=== PATIENT | male | born 1960 | race Caucasian/White ===

== ENCOUNTER 2022-09-01 09:16 | Observation (INO) ==
--- NOTE | 2022-07-20 10:14 | PAT Medication Instructions ---
Medication Instructions Date of Service July 20, 2022 Home Medications acetaminophen 650 mg tablet,extended release 1,300 mg PO Q12H PRN Pain albuterol sulfate 90 mcg/actuation aerosol inhaler (ProAir HFA) 1 inh inhalation QID PRN sob aspirin 325 mg tablet 325 mg PO QPM cetirizine 10 mg tablet 10 mg PO QAM diclofenac sodium 75 mg tablet,delayed release 75 mg PO BID PRN Pain fenofibrate 54 mg tablet 54 mg PO QPM levothyroxine 25 mcg tablet (Synthroid) 25 mcg PO QAM lorazepam 0.5 mg tablet (Ativan) 0.5 mg PO BID PRN Anxiety losartan 100 mg tablet (Cozaar) 100 mg PO QAM rwkrkpseeoyp-asfdvhzp-buokzx tablet 1 tab PO QPM omega 0-lns-wtm-fish oil 1,200 mg (144 mg-216 mg) capsule (Fish Oil) 1 cap PO BID omeprazole 40 mg capsule,delayed release 40 mg PO QAM rosuvastatin 10 mg tablet (Crestor) 10 mg PO QAM sertraline 50 mg tablet (Zoloft) 50 mg PO QAM triamterene 37.5 mg-hydrochlorothiazide 25 mg tablet (Maxzide-25mg) 1 tab PO QAM ASK your surgeon for instructions diclofenac sodium 75 mg tablet,delayed release 75 mg PO BID PRN Pain ASK your prescriber and surgeon aspirin 325 mg tablet 325 mg PO QPM STOP taking 2 weeks before surgery (or as soon as possible if surgery is within 2 weeks) omega 3-fch-qxy-fish oil 1,200 mg (144 mg-216 mg) capsule (Fish Oil) 1 cap PO BID divsdhulkvaa-gkzbvgvd-xktbvw tablet 1 tab PO QPM STOP taking 48 hours before surgery fenofibrate 54 mg tablet 54 mg PO QPM DO NOT take the morning of surgery cetirizine 10 mg tablet 10 mg PO QAM losartan 100 mg tablet (Cozaar) 100 mg PO QAM triamterene 37.5 mg-hydrochlorothiazide 25 mg tablet (Maxzide-25mg) 1 tab PO QAM Take morning of surgery With a small sip of water, OTHERWISE NOTHING TO EAT OR DRINK AFTER MIDNIGHT: acetaminophen 650 mg tablet,extended release 1,300 mg PO Q12H PRN Pain (if needed) albuterol sulfate 90 mcg/actuation aerosol inhaler (ProAir HFA) 1 inh inhalation QID PRN sob (use if needed; please bring rescue inhaler with you to hospital day of surgery if possible) levothyroxine 25 mcg tablet (Synthroid) 25 mcg PO QAM lorazepam 0.5 mg tablet (Ativan) 0.5 mg PO BID PRN Anxiety (if needed) omeprazole 40 mg capsule,delayed release 40 mg PO QAM sertraline 50 mg tablet (Zoloft) 50 mg PO QAM Take evening before surgery acetaminophen 650 mg tablet,extended release 1,300 mg PO Q12H PRN Pain (if needed) albuterol sulfate 90 mcg/actuation aerosol inhaler (ProAir HFA) 1 inh inhalation QID PRN sob (if needed) lorazepam 0.5 mg tablet (Ativan) 0.5 mg PO BID PRN Anxiety (if needed) Other Notes If you have any questions please call us at [phone] or [phone] or [phone] or [phone]
--- NOTE | 2022-07-23 11:15 | Anesthesiology Consultation ---
Date of Service July 23, 2022 Assessment & Plan (1) Encounter for pre-operative examination: Chart Review Chart Review: Pending: Refer to Additional Notes / Consult section (pending PCP clearance 07/28/22 ) and Patient seen in Pre Admission Testing -Awaiting PCP clearance scheduled 07/28/22 (will write note to PCP re: patient's chest pressure); please also send preop testing for PCP review Per [facility] appt on 07/23/22, patient denies any recent travel or large group activities. Pt is vaccinated for Covid. Pt had head and chest congestion 06/27/22- symptoms have since subsided. Preop Covid test ordered at [facility] appt 07/23/22= positive. DOS will be 19 days from Covid positive test- symptoms have resolved. Pt can proceed as scheduled. Educated on importance of using Covid precautions one week prior to surgery Teaching & Discussion Pre-Anesthesia Teaching/Discussion Notes: Instructed NPO after midnight before surgery,except medications with 15 cc of water. Medication instructions provided according to the [facility] guidelines. History Surgery Operation Date: 08/11/22 10:05 Proposed Procedures p L4-L5 Decompression with Possible Coflex - Wilfred Painting DO Height/Weight Height: 5 ft 6.5 in Weight: 116 kg Allergies Allergy/AdvReac Type Severity Reaction Status Date / Time No Known Allergies Allergy Unverified 07/20/22 07:29 Medications Home Medications Medication Instructions Recorded Confirmed Last Taken acetaminophen 650 mg 1,300 mg PO Q12H PRN Pain 07/20/22 07/20/22 Unknown tablet,extended release albuterol sulfate 90 mcg/actuation 1 inh inhalation QID PRN sob 07/20/22 07/20/22 Unknown aerosol inhaler (ProAir HFA) aspirin 325 mg tablet 325 mg PO QPM 07/20/22 07/20/22 Unknown cetirizine 10 mg tablet 10 mg PO QAM 07/20/22 07/20/22 Unknown diclofenac sodium 75 mg 75 mg PO BID PRN Pain 07/20/22 07/20/22 Unknown tablet,delayed release fenofibrate 54 mg tablet 54 mg PO QPM 07/20/22 07/20/22 Unknown levothyroxine 25 mcg tablet 25 mcg PO QAM 07/20/22 07/20/22 Unknown (Synthroid) lorazepam 0.5 mg tablet (Ativan) 0.5 mg PO BID PRN Anxiety 07/20/22 07/20/22 Unknown losartan 100 mg tablet (Cozaar) 100 mg PO QAM 07/20/22 07/20/22 Unknown lielrmnkxrko-wwertxbf-enxriz tablet 1 tab PO QPM 07/20/22 07/20/22 Unknown omega 8-qku-ghy-fish oil 1,200 mg 1 cap PO BID 07/20/22 07/20/22 Unknown (144 mg-216 mg) capsule (Fish Oil) omeprazole 40 mg capsule,delayed 40 mg PO QAM 07/20/22 07/20/22 Unknown release rosuvastatin 10 mg tablet (Crestor) 10 mg PO QAM 07/20/22 07/20/22 Unknown sertraline 50 mg tablet (Zoloft) 50 mg PO QAM 07/20/22 07/20/22 Unknown triamterene 37.5 1 tab PO QAM 07/20/22 07/20/22 Unknown mg-hydrochlorothiazide 25 mg tablet (Maxzide-25mg) Past Medical History Medical History Anxiety mild - rarely. Chronic back pain Degenerative disc disease Depression GERD (gastroesophageal reflux disease) Well controlled and stable Hyperlipidemia Hypertension Hypothyroidism Sleep apnea cpap nightly Exercise / Class Metabolic Activity II 4-5 Yardwork/Stairs/Walk up hill (one flight of stairs - no chest pain or SOB ) Past Family History Family History Other No family history of adverse response to anesthesia Past Surgical History Surgical History H/O decompression of ulnar nerve H/O left inguinal hernia repair History of carpal tunnel release bilateral History of cholecystectomy History of colonoscopy History of surgical removal of skin lesion around the eye area S/P laminectomy left S1 - L5 ([address] Painting) S/P right knee arthroscopy S/P trigger finger release Past Anesthesia History No Hx of Anesthesia Complications and No Family Hx of Anesthesia Complications History of PONV No Hx of PONV and No Hx of Motion Sickness Social History Smoking Status: Former smoker tobacco type: cigarettes Do You Dip or Chew Tobacco: No Smoking End Date: 2017 Hx Alcohol Use: No Hx Substance Use: No substance use type: does not use Review of Systems Pt admits to occ chest pressure- occurs occasionally. Once month. Can occur with rest. No radiation. No associated SOB or nausea. Located to bilateral upper chest R>L Mild chest and sinus congestion over [place] - symptoms improving as of 07/23/22 Patient denies chest pain, shortness of breath, dyspnea on exertion, cough, wheezing, palpitations. No hx of seizures, stroke, LA. No hx of blood clots or blood transfusions Physical Exam Vital Signs VITALS BP 154/82 P 76 TEMP 98.9 SP02 98% RESP 16 Constitutional no acute distress ENMT Mouth: + small oral opening; no TMJ clicking Thyromental Distance: < 3.5 Finger Breadths (3.0) Mallampati Class: III Missing molars Neck neck extension not limited Respiratory normal respiratory effort; no respiratory distress Auscultation: lungs clear to auscultation bilaterally; no wheezes Cardiovascular Rate/Rhythm: regular rate and regular rhythm Heart Sounds: no murmur Vessels: no carotid bruit Musculoskeletal Spine: no pain with cervical ROM Extremities: extremities normal to inspection Psychiatric Orientation: alert Lab Results Anesthesia Preop Results Results Anesthesia Widget: WBC 6.28 K/ul (4.8-10.8) 07/23/22 Hgb 12.2 g/dl (14.0-18.0) L 07/23/22 Hct 36.3 % (40.1-51.0) L 07/23/22 Plt 249 K/uL (130-400) 07/23/22 Na 143 mmol/L (136-145) 07/23/22 K 4.6 mmol/L (3.5-5.1) 07/23/22 Cl 107 mmol/L (98-107) 07/23/22 CO2 29 mmol/L (21-32) 07/23/22 BUN 33 mg/dl (6-23) H 07/23/22 Creat 1.50 mg/dl (0.6-1.4) H 07/23/22 Glucose Level 115 mg/dl (70-99(Fasting)) H 07/23/22 PT 11.1 Seconds (9.0-12.0) 07/23/22 PTT 26.3 Seconds (21.0-31.0) 07/23/22 INR 1.0 (0.9-1.1) 07/23/22 Urine Color Yellow 07/23/22 Urine Appearance Clear (Clear) 07/23/22 Urine pH 7.5 (4.5-7.5) 07/23/22 Urine Specific [place] 1.019 (1.000-1.030) 07/23/22 Urine Protein Negative (Negative) 07/23/22 Urine Glucose (UA) Negative (Negative) 07/23/22 Urine Ketones Negative (Negative) 07/23/22 Urine Blood Negative (Negative) 07/23/22 Urine Nitrite Negative (Negative) 07/23/22 Urine Bilirubin Negative (Negative) 07/23/22 Urine Urobilinogen Negative (Negative) 07/23/22 Urine Leukocyte Esterase Negative (Negative) 07/23/22 Blood Type A Positive 07/23/22 Antibody Screen NEGATIVE 07/23/22 Testing Laboratory Results Elevated creatinine fluctuates (creat 1.2-1.6 since December 2021)- will send labs to PCP for review at [facility] appt Electrocardiogram Date: 07/23/22 Findings: + NSR @ (75bpm ) Normal EKG per cardio. Chest X-Ray Date: 07/23/22 Findings: + NAD COVID-19 Risk Screen Screening Information COVID-19 Screen Date: 07/23/22 Exposure 21 Days Family/Household +COVID Last 21 Days: No Exposure 10 Days Any COVID Exposure Last 10 Days: No Symptoms Last 10 Days Experienced COVID Sx Last 10 Days: Yes Sx Experienced Last 10 Days: Congestion/Runny Nose and Cough Were You Tested for COVID: No Covid Sx 10 Day Pathway: Pt with cold symptoms 06/27/22- [facility] + COVID 0-90 Days COVID + in Last 0-90 Days: No COVID Testing Site COVID-19 Preop/Pre-Procedure Testing Site: [facility] (Will preop test [facility] 07[facility]22= positive (pt and surgeon's office made aware)) Risk Plan COVID Risk Plan Comment: Covid symptoms 06/27/22- pt scheduled for inpatient procedure Patient Education COVID Preop Screening Education Complete: Yes
[~2022-09-01 09:16] MED LIST: ACETAMINOPHEN 500 MG TAB PO SCH; CeleBREX 200 MG CAP PO SCH; GABAPENTIN 600 MG DOSE PO SCH; LR 15ML/HR IV SCH; ceFAZolin 2000MG 2,000 MG/15 ML SYR IV SCH
[2022-09-01] MEDS ORDERED: LIDOCAINE 2% MPF LOCAL 5 ML VIAL INFIL ONE (11:38)
[2022-09-01] MEDS ORDERED: MIDAZOLAM HCL 1 MG/ML 2ML VIAL ONE (11:38)
[2022-09-01] MEDS ORDERED: ONDANSETRON INJ 2 MG/ML 2 ML VIAL ONE (11:38)
[2022-09-01] MEDS ORDERED: ROCURONIUM BROMIDE 10 MG/ML 5 ML VIAL IV ONE (11:38)
[2022-09-01] MEDS ORDERED: DEXAMETHASONE SOD INJ 4 MG/ML VIAL ONE ×2 (11:38→14:18)
[2022-09-01] MEDS ORDERED: PROPOFOL IV EMULSION 10 MG/ML 20 ML VIAL IV ONE (11:38)
[2022-09-01] MEDS ORDERED: fentaNYL citrate 100 MCG/2 ML VIAL ONE (11:38)
[2022-09-01] MEDS ORDERED: ONDANSETRON INJ 2 MG/ML 2 ML VIAL IV PRN ×2 (12:30→16:10)
[2022-09-01] MEDS ORDERED: ePHEDrine sulfate 50 MG/ML AMP IV PRN (12:30)
[2022-09-01] MEDS ORDERED: PROMETHAZINE HCL 6.25 MG in SODIUM CHLORIDE 0.9% 50 ML IV PRN (12:30)
[2022-09-01] MEDS ORDERED: fentaNYL citrate 100 MCG/2 ML VIAL IV PRN (12:30)
[2022-09-01] MEDS ORDERED: HYDROmorphone INJ 2 MG/ML SYR/VIAL IV PRN (12:30)
[2022-09-01] MEDS ORDERED: ATROPINE SULFATE 0.1 MG/ML 10ML SYR IV PRN (12:30)
--- NOTE | 2022-09-01 12:46 | History & Physical Report ---
Date of Service September 01, 2022 Assessment & Plan (1) Lumbar disc herniation with radiculopathy: Plan: L4-L5 decompression with possible Coflex History of Present Illness Chief Complaint: Back and leg pain Primary Care Provider: Brice Rodriguez This is a 62 old male who presents with chronic persistent back and leg pain after failing course of nonoperative care is here for surgical invention. Allergies Allergy/AdvReac Type Severity Reaction Status Date / Time No Known Allergies Allergy Verified 09/01/22 10:52 Home Medications Medication Instructions Recorded Confirmed Type acetaminophen 650 mg 1,300 mg PO Q12H PRN Pain 07/20/22 09/01/22 History tablet,extended release albuterol sulfate 90 mcg/actuation 1 inh inhalation QID PRN sob 07/20/22 09/01/22 History aerosol inhaler (ProAir HFA) aspirin 325 mg tablet 325 mg PO QPM 07/20/22 09/01/22 History cetirizine 10 mg tablet 10 mg PO QAM 07/20/22 09/01/22 History diclofenac sodium 75 mg 75 mg PO BID PRN Pain 07/20/22 09/01/22 History tablet,delayed release fenofibrate 54 mg tablet 54 mg PO QPM 07/20/22 09/01/22 History levothyroxine 25 mcg tablet 25 mcg PO QAM 07/20/22 09/01/22 History (Synthroid) lorazepam 0.5 mg tablet (Ativan) 0.5 mg PO BID PRN Anxiety 07/20/22 09/01/22 History losartan 100 mg tablet (Cozaar) 100 mg PO QAM 07/20/22 09/01/22 History appvesgyqqfx-mtwkfzgc-hxjoah tablet 1 tab PO QPM 07/20/22 09/01/22 History omega 8-jks-nmt-fish oil 1,200 mg 1 cap PO BID 07/20/22 09/01/22 History (144 mg-216 mg) capsule (Fish Oil) omeprazole 40 mg capsule,delayed 40 mg PO QAM 07/20/22 09/01/22 History release rosuvastatin 10 mg tablet (Crestor) 10 mg PO QAM 07/20/22 09/01/22 History sertraline 50 mg tablet (Zoloft) 50 mg PO QAM 07/20/22 09/01/22 History triamterene 37.5 1 tab PO QAM 07/20/22 09/01/22 History mg-hydrochlorothiazide 25 mg tablet (Maxzide-25mg) Past Med/Surg History Medical History Anxiety mild - rarely. Chronic back pain Degenerative disc disease Depression GERD (gastroesophageal reflux disease) Well controlled and stable Hyperlipidemia Hypertension Hypothyroidism Sleep apnea cpap nightly Surgical History H/O decompression of ulnar nerve H/O left inguinal hernia repair History of carpal tunnel release bilateral History of cholecystectomy History of colonoscopy History of surgical removal of skin lesion around the eye area S/P laminectomy left S1 - L5 ([address] Painting) S/P right knee arthroscopy S/P trigger finger release Family History Other No family history of adverse response to anesthesia Social History Smoking Status: Former smoker Smoking End Date: 2017; Second Hand Exposure: No; Do You Dip or Chew Tobacco: No; Tobacco Cessation Education Requested by Patient: No Hx Alcohol Use: No Hx Substance Use: No Preferred Language: Russian Communication Ability: Effective [employer] Specialist Required: No Beliefs That Will Affect Care: None Current Living Situation: Spouse Other Information That Helps Us Care for You: No Feels Safe at Home: Yes Safety Concerns: Feels Safe At This Time Assistive Devices: CPAP Physical Exam Physical Exam: Patient is alert and oriented Heart regular rhythm Lungs clear Results & Data Results & Data ([facility]) Vital Signs (Past 12 Hours) Vital Signs Temp Pulse Resp BP Pulse Ox O2 Del Method 09/01/22 10:56 Room Air 09/01/22 10:56 36.5 C 63 16 136/91 97 Room Air
--- NOTE | 2022-09-01 12:46 | History & Physical Bridge Note ---
Date of Service September 01, 2022 History & Physical Bridge Note I have examined the patient, reviewed the History & Physical and in the interval since the performance of the History & Physical I have noted the following changes of clinical significance: no changes noted
[2022-09-01] MEDS ORDERED: ceFAZolin 330 MG/ML 1 GM VIAL ONE (12:58)
[2022-09-01] MEDS ORDERED: BUPIVACAINE/EPINEPHRINE 0.25% 1:200,000 30 ML VIAL ONE (12:58)
[2022-09-01] MEDS ORDERED: FLOSEAL HEMOSTATIC MATRIX 10ML TOP ONE (14:02)
[2022-09-01] MEDS ORDERED: GLYCOPYRROLATE 0.2 MG/ML VIAL ONE (14:18)
[2022-09-01] MEDS ORDERED: SUGAMMADEX SODIUM 200 MG/2 ML VIAL IV ONE (14:29)
--- NOTE | 2022-09-01 14:37 | Operative Report ---
Post Operative Report Pre & Post Diagnosis Operation Date: 09/01/22 12:25 Pre-Op Diagnosis: Intervertebral Disc Disorders with Radiculopathy Post-Op Diagnosis: Intervertebral Disc Disorders with Radiculopathy I identified the patient and participated in the time-out.: Yes Procedure Operation Date: 09/01/22 12:25 Actual Procedures #1 lumbar decompression with medial facetectomies and partial discectomy L4-L5. #2 placement of 16 mm Coflex between L4-L5. Surgeon Wilfred Painting, DO Plugger Ina Cheney Estimated Blood Loss 50 Findings See Below The patient is 5 foot 6 weighing over 113 kg with a BMI in excess of 39. The patient's body habitus did contribute to significant technical difficulty required deeper retractors longer instruments in order to perform his procedure. This had at least 50% increased operative time. Specimens None Indications This is a 62-year-old male who presents above-mentioned diagnosis after failed course of nonoperative care is here for the above-mentioned procedure. Description of Procedure Patient was met with identified informed consent obtained. Patient was then taken to the operative suite underwent a patient placed in a prone position the Augie table top of the Lio frame. All bony promises well-padded eyes inspected to ensure no external pressure placed upon the. This point the lumbar spine was prepped and draped no sterile fashion. Sharp dissection with the assistance of Bovie cautery was formed down to and exposing the interlaminar space at L4-L5. Self-retaining retractors placed. Midline decompression was then performed including bilateral medial facetectomies to address all stenosis as well as extensive laminotomy on the right in order to expose the traversing L5 nerve root. This was exposed medially and large fragments of disc material consistent with disc herniation identified and removed creating significant decompression of the traversing root. 16mm Coflex was inserted and crimped into place. a 10 round GIL drain inserted. It was then closed with 1 Vicryl in the fascia 2-0 Vicryl subcutaneously and 4 Monocryl for final closure. Steri-Strip sterile dressings placed. Patient waken taken to PACU in stable condition. Please note Ina Cheney was present at the entire procedure and all the patient positioning complex portion of the surgery and final skin closure. I attest to the content of the Intraoperative Record and any orders documented therein. Any exceptions are noted below.
--- NOTE | 2022-09-01 15:03 | Fluoroscopy Report ---
FL lumbar spine 2-3V CLINICAL HISTORY: L4-5 POSS COFLEX COMPARISON STUDY: None FLUOROSCOPY TIME: 6 seconds FLUOROSCOPY IMAGES: 2 EXPOSURE DOSE: 5.66 mGy FINDINGS: A metallic spacer device is noted between the L4-L5 spinous processes posteriorly. Multilev el spondylitic spurring. Moderate L5-S1 intervertebral disc space narrowing. No acute fracture or une xpected opaque foreign body identified. IMPRESSION: Fluoroscopic assistance as above. ACT 112: Negative or not required by law. Electronically signed by: Paul Lim M.D. 09/01/2022 3:01 PM
--- NOTE | 2022-09-01 15:36 | Anesthesiology Progress Note ---
Date of Service September 01, 2022 Anesthesia Post Procedure Vital Signs Vital Signs: Temp Pulse Pulse Resp BP BP Pulse Ox 09/01/22 15:20 57 L 12 121/73 95 09/01/22 15:30 36.5 C 58 L 12 129/75 98 09/01/22 15:10 59 L 14 132/77 100 09/01/22 15:00 63 16 130/76 100 09/01/22 14:50 36.0 C L 78 18 127/87 99 09/01/22 10:56 09/01/22 10:56 36.5 C 63 16 136/91 97 O2 Del Method O2 Flow Rate 09/01/22 15:20 Nasal Cannula 2 09/01/22 15:30 Nasal Cannula 2 09/01/22 15:10 Nasal Cannula 2 09/01/22 15:00 Oxymask 4 09/01/22 14:50 Oxymask 6 09/01/22 10:56 Room Air 09/01/22 10:56 Room Air Pain Intensity Lower Back: Pain Intensity: 8 Transfer of Care Handoff Completed per policy Notes Mental Status: alert / awake / arousable and participated in evaluation Patient Amnestic to Procedure: Yes Nausea / Vomiting: adequately controlled Pain: adequately controlled Airway Patency, RR, SpO2: stable & adequate BP & HR: stable & adequate Hydration State: stable & adequate Anesthetic Complications: no major complications apparent and Pt Satisfied with anesthetic care
[2022-09-01] MEDS ORDERED: oxyCODONE HCL IR 5 MG TAB (IMMEDIATE RELEASE) PO PRN (16:10)
[2022-09-01] MEDS ORDERED: DO NOT ADMINISTER FLU VACCINE PRN (16:10)
[2022-09-01] MEDS ORDERED: DO NOT ADMINISTER PNEUMOCOCCAL VACCINE PRN (16:10)
[2022-09-01] MEDS ORDERED: hydrOXYzine HCl 25 MG TAB PO PRN (16:10)
[2022-09-01] MEDS ORDERED: FAMOTIDINE 20 MG TAB PO PRN (16:10)
[2022-09-01] MEDS ORDERED: ACETAMINOPHEN 500 MG TAB PO PRN (16:10)
[2022-09-01] MEDS ORDERED: LORazepam 0.5 MG TAB PO PRN (16:10)
[2022-09-01] MEDS ORDERED: diphenhydrAMINE Capsule 25 MG CAP PO PRN (16:10)
[2022-09-01] MEDS ORDERED: ONDANSETRON 4 MG OD TAB PO PRN (16:10)
[2022-09-01] MEDS ORDERED: bisacodyL 10 MG SUPP PR PRN (16:10)
[2022-09-01] MEDS ORDERED: HYDROmorphone INJ 0.5 MG/0.5 ML SYR IV PRN (16:10)
[2022-09-01] MEDS ORDERED: PROMETHAZINE HCL 12.5 MG in SODIUM CHLORIDE 0.9% 50 ML IV PRN (16:10)
[2022-09-01] MEDS ORDERED: ALUMINUM/MAGNESIUM SUSP 30 ML UDC PO PRN (16:10)
[2022-09-01] MEDS ORDERED: LORazepam 2 MG/1 ML VIAL IV PRN (16:10)
[2022-09-01] MEDS ORDERED: ACETAMINOPHEN 1,000 MG/100 ML VIAL IV PRN (16:10)
[2022-09-01] MEDS ORDERED: NALOXONE HCL 0.4 MG/1 ML VIAL/CARP IV PRN (16:10)
[2022-09-01] MEDS ORDERED: METOCLOPRAMIDE HCL INJ 5 MG/ML 2 ML VIAL IV PRN (16:10)
[2022-09-01] MEDS ORDERED: traMADol HCL 50 MG TABLET PO PRN (16:10)
[2022-09-01] MEDS ORDERED: MAGNESIUM HYDROXIDE SUSP 30 ML UDC PO PRN (16:10)
[2022-09-01] MEDS ORDERED: SOD PHOSPHATE/SOD BIPHOSPHATE ENEMA 132 ML BTL PR PRN (16:10)
[2022-09-01] MEDS: LACTATED RINGER'S 1,000 ML IV SCH ×2 (16:32→22:14)
[2022-09-01] MEDS: ceFAZolin 2000MG 2,000 MG/15 ML SYR IV SCH (20:02)
[2022-09-01] MEDS ORDERED: ASPIRIN 325 MG ECTAB PO SCH (21:00)
[2022-09-01] MEDS ORDERED: CEROVITE ADV FORMULA TAB PO SCH (21:00)
[2022-09-01] MEDS ORDERED: DOCUSATE SODIUM/SENNA 50/8.6MG TAB PO SCH (21:00)
[2022-09-02] MEDS: LACTATED RINGER'S 1,000 ML IV SCH (00:28)
[2022-09-02] MEDS: ceFAZolin 2000MG 2,000 MG/15 ML SYR IV SCH (05:28)
[2022-09-02] MEDS ORDERED: POLYETHYLENE (MIRALAX) 17 GM PACK PO SCH (06:00)
[2022-09-02] MEDS ORDERED: LEVOTHYROXINE SODIUM 25 MCG TABLET PO SCH (06:30)
--- NOTE | 2022-09-02 08:31 | Discharge Summary ---
Date of Service September 02, 2022 Admission HPI Per Admitting Provider This is a 62 old male who presents with chronic persistent back and leg pain after failing course of nonoperative care is here for surgical invention. Principal Diagnosis Lumbar disc herniation with radiculopathy Discharge Data Allergies Allergy/AdvReac Type Severity Reaction Status Date / Time No Known Allergies Allergy Verified 09/01/22 10:52 Procedures Performed Operation Date: 09/01/22 12:25 Actual Procedures p L4-L5 Decompression with Coflex(Not Applicable) - Wilfred Painting DO Ordered Studies 09/01/22 12:25 FL lumbar spine 2-3V Routine Hospital Course (1) Lumbar disc herniation with radiculopathy: Patient 1 lumbar decompression discectomy with Coflex placement tolerated so was taken to orthopedic for postoperative. Postop day 1 he was up and ambulating leg pain markedly improved. GIL drain decreasing appropriately. Excellent strength testing. Subsidy discharged home. Discharge orders instructions found in chart for further review. Total Time Total Time Spent Total Time Spent (In Minutes): 20 minutes Discharge Plan Discharge Items Patient Disposition: Home - Self-Care Reason For Visit: Intervertebral Disc Disorders with Radiculopathy Discharge Diagnosis: Lumbar disc herniation with radiculopathy Activity: As commented below Non-emergency contact: Primary Care Provider Call non-emergency contact if: you have any medication questions Follow-up/Referrals: Brice Rodriguez D.O. [Primary Care Provider] - Diet: Regular Addtl Attending Provider Instructions: ACTIVITY RECOMMENDATIONS: SELF CARE INSTRUCTIONS AFTER A LAMINECTOMY 1. No prolonged sitting (less than 30 minutes for the first 3 weeks after surgery). 2. No bending, lifting more than 5 pounds, or twisting (roll like a log when turning in bed). 3. You may shower 3 days after surgery if no drainage from wound. Thoroughly dry wound. Do not soak in the tub. 4. Please walk as much as you can for exercise. Gradually increase the distance that you walk as your endurance increases. 5. You may drive in 7-10 days if you are comfortable and no longer requiring pain medications. SPECIAL CARE INSTRUCTIONS: VERY IMPORTANT TO READ AND REVIEW A. Your surgical incision has been closed with a cosmetic suture under the skin that will dissolve in about 6 weeks. In 14 days, you can use a pair of clean scissors and cut the suture that is left outside of the skin at the ends of your incision. B. Complications are uncommon, but please contact us if you have any signs or symptoms of: 1. wound infection (fever higher than 102.5 degrees F, redness, separation of wound, drainage, or increasing pain from the incision) 2. blood clots in legs (pain, swelling, redness and warmth in legs) 3. urinary tract infection (fever higher than 102.5 degrees, burning upon urination or increased frequency of urination) 4. nerve problems (inability to walk on your toes or heels, numbness, loss of bowel or bladder control) 5. any other symptoms that concern you. C. Please call the office at if you have any concerns or questions about your operation or recovery. MANAGING PAIN AFTER SPINAL SURGERY 1. Narcotic medication is intended for short-term use and will be provided for surgical pain. Surgical pain usually lasts for a period of 4-6 weeks. Narcotic medication includes Percocet, Vicodin, Darvocet, Tylenol #3 or Lortab. 2. Longer-term pain is more appropriately treated with non-narcotic medication such as Tylenol ES. 3. Muscle spasm is not appropriately treated with narcotics. Muscle relaxers such as Soma, Flexeril or Skelaxin can be used along with Tylenol ES. 4. Remember that we all live with some "aches and pains". This is not unusual or uncommon after an injury or as we get older. 5. We will provide appropriate medication within the normal guidelines of their prescribed use. We will also be very cautious and aware of potential abuse and extended duration of patients' medication needs. 6. Please allow 2-3 days to process refills. Prescriptions will not be mailed but must be picked up at the office. FOLLOW UP VISIT: Keep your scheduled follow-up appointment. Any questions, please call the office at . Pending Studies at Discharge: No Stand-Alone Forms: My [employer], Smoking Cessation Medications and [facility] Order Prescriptions: New tramadol 50 mg tablet 50 mg PO Q6H PRN (Reason: pain, moderate) Qty: 30 0RF oxycodone 5 mg tablet 5 mg PO Q6H PRN (Reason: pain, severe) Qty: 30 0RF Continued cetirizine 10 mg Tablet 10 mg PO QAM aspirin 325 mg Tablet 325 mg PO QPM omeprazole 40 mg Capsule,Delayed Release(Dr/Ec) 40 mg PO QAM levothyroxine [Synthroid] 25 mcg Tablet 25 mcg PO QAM lorazepam [Ativan] 0.5 mg Tablet 0.5 mg PO BID PRN (Reason: Anxiety) triamterene-hydrochlorothiazid [Maxzide-25mg] 37.5-25 mg Tablet 1 tab PO QAM albuterol sulfate [ProAir HFA] 90 mcg/actuation Hfa Aerosol Inhaler 1 inh INHALATION QID PRN (Reason: sob) losartan [Cozaar] 100 mg Tablet 100 mg PO QAM sertraline [Zoloft] 50 mg Tablet 50 mg PO QAM sikyvcrfntjv-zfjecblj-mceejt Tablet 1 tab PO QPM rosuvastatin [Crestor] 10 mg Tablet 10 mg PO QAM fenofibrate 54 mg Tablet 54 mg PO QPM omega 2-tet-pdi-fish oil [Fish Oil] 1,200 (144-216) mg Capsule 1 cap PO BID acetaminophen 650 mg Tablet Extended Release 1,300 mg PO Q12H PRN (Reason: Pain) diclofenac sodium 75 mg Tablet,Delayed Release (Dr/Ec) 75 mg PO BID PRN (Reason: Pain) Discharge Orders: Discharge Order (Routine); Ordered 09/02/22 Ordered By: Wilfred Painting Admission Data Admit Date/Time: 09/01/22 14:39 Attending Provider: Wilfred Painting Admit Provider: Wilfred Painting Primary Care Provider: Brice Rodriguez
[2022-09-02] MEDS ORDERED: CETIRIZINE HCL 10 MG TABLET PO SCH (09:00)
[2022-09-02] MEDS ORDERED: TRIAMTERENE/HCTZ 37.5/25MG TAB PO SCH (09:00)
[2022-09-02] MEDS ORDERED: PANTOprazole 40 MG TAB PO SCH (09:00)
[2022-09-02] MEDS ORDERED: ROSUVASTATIN CALCIUM 10 MG TAB PO SCH (09:00)
[2022-09-02] MEDS ORDERED: SERTRALINE HCL 50 MG TABLET PO SCH (09:00)
[2022-09-02] MEDS ORDERED: LOSARTAN POTASSIUM 50 MG TAB PO SCH (09:00)
[2022-09-02] MEDS ORDERED: dexAMETHasone 6 MG in SYRINGE 0 ML IV SCH (09:00)
== END 2022-09-02 10:57 | disposition home or self-care (01) ==
LOC: ASU 09:16 → 3E 09:16